=== PATIENT | male | born 1965 | race Caucasian/White ===

== ENCOUNTER 2017-01-07 00:40 | Inpatient (IN) | payer OTHER ==
[~2017-01-07] VITALS: Ht 175.3 cm; Wt 66.2 kg
[~2017-01-07 00:40] MED LIST: ASPI325T49 PO; CLOP75TA PO; INSULIN REGULAR; LANTUS SUBQ
[2017-01-07 00:45] VITALS: BP 121/93
[2017-01-07 02:28] LABS: HEMATOCRIT 49.9 % (36-52); HEMOGLOBIN 16.1 g/dL (12.0-18.0); MEAN CORPUSCULAR HEMOGLOBIN 27 pg (27-31); MEAN CORPUSCULAR HGB CONC 32 g/dL (33-37); MEAN CORPUSCULAR VOLUME 85 fL (80-94); PLATELET COUNT (AUTO) 154 K/uL (140-450); RED CELL DISTRIBUTION WIDTH 12.6 % (11.6-13.7); WHITE BLOOD COUNT (AUTO) 9.3 K/uL (4.8-10.8)
[2017-01-07 02:47] LABS: ALBUMIN 3.5 g/dL (3.4-5.0); ANION GAP 9.6 (8-16); CALCIUM 8.8 mg/dL (8.5-10.1); CARBON DIOXIDE 32.5 mmol/L (21-32); CREATININE 1.2 mg/dL (0.7-1.3); POTASSIUM 4.1 mmol/L (3.5-5.1); TOTAL BILIRUBIN 0.4 mg/dL (0.0-1.0); TOTAL PROTEIN, SERUM 6.8 g/dL (6.4-8.2)
[2017-01-07 02:49] LABS: PARTIAL THROMBOPLASTIN TIME 27.3 secs (22-35.6); PROTHROMBIN TIME 9.8 secs (10.8-13.4)
[2017-01-07 02:50] LABS: BASOPHILS % (MANUAL) 1 % (0-2); EOSINOPHILS % (MANUAL) 6 % (0-4); LYMPHOCYTES % (MANUAL) 36 % (20-46); MONOCYTES % (MANUAL) 6 % (5-12); NEUTROPHILS % (MANUAL) 51 (43-65)
[2017-01-07] MEDS ORDERED: INSULIN HUMAN REGULAR 100 UNITS/ML 10 ML VIAL IVP ONE (02:55)
[2017-01-07] MEDS ORDERED: NACL 0.9% 1,000 ML IV ONE (02:55)
[2017-01-07] MEDS ORDERED: NACL 0.9% 1,000 ML IV SCH (03:19)
[2017-01-07] MEDS ORDERED: HYDROcodone/APAP 7.5/325 MG 1 TAB PO PRN (03:20)
[2017-01-07] MEDS ORDERED: ACETAMINOPHEN 325 MG TAB PO PRN (03:20)
[2017-01-07] MEDS ORDERED: DOCUSATE SODIUM 100 MG GELCAP PO PRN (03:20)
[2017-01-07] MEDS ORDERED: MORPHINE SULFATE 2 MG/ML SYR IVP PRN (03:20)
[2017-01-07] MEDS ORDERED: ONDANSETRON 4 MG/2 ML VIAL IM/IVP PRN (03:20)
[2017-01-07] MEDS ORDERED: DEXTROSE 50% 50 ML SYR IVP PRN (03:40)
[2017-01-07 03:52] LABS: CHOL/HDL RATIO 4.8 (1-4.5); FREE T4 (FREE THYROXINE) 1.23 ng/dL (0.76-1.46); MAGNESIUM 1.8 mg/dL (1.8-2.4); PHOSPHORUS 3.2 mg/dL (2.5-4.9); THYROID STIMULATING HORMONE 2.52 uIU/mL (0.34-3.74)
[2017-01-07 04:03] VITALS: BP 120/84
[2017-01-07] MEDS ORDERED: METO25TE2 PO (04:38)
[2017-01-07] MEDS ORDERED: ATOR20TA PO (04:38)
[2017-01-07] MEDS ORDERED: ECOTRIN 81 MG TABEC PO SCH (05:00)
[2017-01-07] MEDS: NACL 0.9% 1,000 ML IV SCH ×2 (05:00→11:59)
[2017-01-07] MEDS: LISINOPRIL 10 MG TAB PO SCH ×2 (05:55→09:00)
[2017-01-07] MEDS: BLOOD GLUCOSE MONITORING 1 DEV DEV FS SCH ×4 (06:00→20:50)
[2017-01-07] MEDS: INSULIN LISPRO SLIDING SCALE 100 UNITS/ML VIAL SUBQ PRN ×4 (06:02→20:52)
[2017-01-07 08:17] VITALS: BP 129/88
[2017-01-07] MEDS ORDERED: PANTOPRAZOLE 40 MG TABEC PO SCH (09:00)
[2017-01-07] MEDS: ECOTRIN 81 MG TABEC PO SCH (09:00)
[2017-01-07] MEDS: ATORVASTATIN 20 MG TAB PO SCH (09:12)
[2017-01-07] MEDS: CLOPIDOGREL 75 MG TAB PO SCH (09:13)
[2017-01-07] MEDS: METOPROLOL SUCCINATE 50 MG TABER PO SCH (09:13)
[2017-01-07 12:00] VITALS: BP 120/89
[2017-01-07 13:39] LABS: BILIRUBIN,URINE NEGATIVE (NEGATIVE); BLOOD, URINE NEGATIVE (NEGATIVE); COLOR,URINE YELLOW (YELLOW); LEUKOCYTE ESTERASE ,URINE NEGATIVE (NEGATIVE); NITRITE, URINE NEGATIVE (NEGATIVE); PH,URINE 6.5 (5.0-9.0); PROTEIN,URINE NEGATIVE (NEGATIVE); UGLUCOSE 3+ (NEGATIVE); UROBILINOGEN,URINE 0.2 EU/dL (0.2 - 1)
[2017-01-07 13:46] LABS: AMPHETAMINE, URINE POS. ng/ml (NEG <=1000); BARBITURATE, URINE NEG. ng/ml (NEG <=200); BENZODIAZEPINE, URINE NEG. ng/mL (NEG <=200); CANNABINOID, URINE NEG. ng/mL (NEG <=50); COCAINE, URINE NEG. ng/mL (NEG <=300); OPIATE, URINE NEG. ng/mL (NEG <=2000); PHENCYCLIDINE SCREEN,URINE NEG. ng/mL (NEG <=25)
[2017-01-07 13:53] LABS: APPEARANCE,URINE CLEAR (CLEAR)
[2017-01-07 14:03] LABS: RBC,URINE NONE SEEN /HPF (0-5)
[2017-01-07 14:04] LABS: BACTERIA,URINE None Seen /HPF (None Seen); MUCUS,URINE None Seen /LPF (None Seen); SQUAMOUS EPITHELIAL CELL,UR None Seen /LPF (0-3 (FEW)); WBC,URINE 0-5 (RARE) /HPF (0-5)
[2017-01-07 16:00] VITALS: BP 112/73
[2017-01-08] VITALS: BP 117/79
[2017-01-08] MEDS: NACL 0.9% 1,000 ML IV SCH (05:36)
[2017-01-08 06:24] LABS: BASOPHILS # (AUTO) 0.3 K/uL (0.00-0.22); BASOPHILS % (AUTO) 2.1 % (0.0-2.0); EOSINOPHILS # (AUTO) 0.4 K/uL (0-0.4); EOSINOPHILS % (AUTO) 2.9 % (0.0-4.0); HEMATOCRIT 52.8 % (36-52); HEMOGLOBIN 17.1 g/dL (12.0-18.0); LYMPHOCYTES # (AUTO) 2.9 K/uL (2.0-11.5); LYMPHOCYTES % (AUTO) 21.9 % (20.5-51.1); MEAN CORPUSCULAR HEMOGLOBIN 28 pg (27-31); MEAN CORPUSCULAR HGB CONC 32 g/dL (33-37); MEAN CORPUSCULAR VOLUME 85 fL (80-94); MONOCYTES % (AUTO) 7.3 % (1.7-9.3); NEUTROPHILS # (AUTO) 8.6 K/uL (1.8-7.7); NEUTROPHILS % (AUTO) 65.8 % (42.2-75.2); PLATELET COUNT (AUTO) 163 K/uL (140-450); RED BLOOD CELL COUNT(AUTO) 6.23 MIL/uL (4.20-6.10); RED CELL DISTRIBUTION WIDTH 12.4 % (11.6-13.7); WHITE BLOOD COUNT (AUTO) 13.2 K/uL (4.8-10.8)
[2017-01-08] MEDS: BLOOD GLUCOSE MONITORING 1 DEV DEV FS SCH ×2 (06:31→12:13)
[2017-01-08] MEDS: INSULIN LISPRO SLIDING SCALE 100 UNITS/ML VIAL SUBQ PRN ×2 (06:32→12:14)
[2017-01-08 06:45] LABS: ANION GAP 8.5 (8-16); CALCIUM 8.7 mg/dL (8.5-10.1); CARBON DIOXIDE 30.9 mmol/L (21-32); CREATININE 0.9 mg/dL (0.7-1.3); POTASSIUM 4.4 mmol/L (3.5-5.1)
[2017-01-08] MEDS ORDERED: PANTOPRAZOLE 40 MG TABEC PO SCH (06:58)
[2017-01-08 07:03] LABS: MAGNESIUM 1.6 mg/dL (1.8-2.4); PHOSPHORUS 2.4 mg/dL (2.5-4.9)
[2017-01-08 08:00] VITALS: BP 120/81
[2017-01-08] MEDS: LISINOPRIL 10 MG TAB PO SCH (08:54)
[2017-01-08] MEDS: METOPROLOL SUCCINATE 50 MG TABER PO SCH (08:54)
[2017-01-08] MEDS: CLOPIDOGREL 75 MG TAB PO SCH (08:54)
[2017-01-08] MEDS: ECOTRIN 81 MG TABEC PO SCH (08:54)
[2017-01-08] MEDS: ATORVASTATIN 20 MG TAB PO SCH (08:55)
[2017-01-08] MEDS ORDERED: INSULIN DETEMIR 100 UNITS/ML 10 ML VIAL SUBQ SCH (09:00)
[2017-01-08] MEDS ORDERED: DEXTROSE 50% 50 ML SYR IVP PRN (09:55)
[2017-01-08] MEDS ORDERED: METO50TE2 PO (14:49)
[2017-01-08] MEDS ORDERED: CLOP75TA5 PO (14:49)
[2017-01-08] MEDS ORDERED: ATOR20TA40 PO (14:49)
[2017-01-08] MEDS ORDERED: LISI10TA11 PO (14:49)
[2017-01-08] MEDS ORDERED: LEVEMIR SUBQ (14:49)
[2017-01-08] MEDS ORDERED: PANT40EC28 PO (14:49)
[2017-01-08] MEDS ORDERED: ASPI81TA28 PO (14:49)
[2017-01-08] MEDS ORDERED: BLOO1STR10 FS (14:50)
[2017-01-09 09:24] LABS: T4 (THYROXINE) 11.5 ug/dL (4.5-12.0)
[2017-01-09 17:13] LABS: HEMOGLOBIN A1C 12.1 % (4.8-5.6)
== END 2017-01-08 16:00 | disposition home or self-care (01) | DRG 638 ==
LOC: MED 00:40 → MTU 03:25
PROVIDERS: ADMIT Student in an Organized Health Care Education/Training Program; ATTEND Student in an Organized Health Care Education/Training Program
DX: E11.65 Type 2 diabetes mellitus with hyperglycemia (principal); D68.59 Other primary thrombophilia; K21.9 Gastro-esophageal reflux disease without esophagitis; I10 Essential (primary) hypertension; F17.210 Nicotine dependence, cigarettes, uncomplicated; E78.5 Hyperlipidemia, unspecified; E78.1 Pure hyperglyceridemia; I25.10 Atherosclerotic heart disease of native coronary artery without angina pectoris; B19.20 Unspecified viral hepatitis C without hepatic coma; Z86.19 Personal history of other infectious and parasitic diseases; Z79.4 Long term (current) use of insulin; Z95.818 Presence of other cardiac implants and grafts; Z79.82 Long term (current) use of aspirin; Z83.3 Family history of diabetes mellitus; Z82.49 Family history of ischemic heart disease and other diseases of the circulatory system; Z28.21 Immunization not carried out because of patient refusal
CPT/HCPCS: 36415; 71010; 80048; 80053; 80305; 81001; 82150; 82948; 83036; 83690; 83735; 83880; 84100; 84436; 84439; 84443; 84479; 84484; 85025; 85610; 85730; 87081; 93005; 93925; 93970; 96374; 99285; J1815; J7030; Q0092

== ENCOUNTER 2017-03-20 10:41 | Inpatient (IN) | payer OTHER ==
[~2017-03-20] VITALS: Ht 175.3 cm; Wt 67.6 kg
[~2017-03-20 10:41] MED LIST changes: +ASPI-1173 PO; -ASPI325T49 PO; +ATOR20TA40 PO; +BLOO1STR10 FS; -CLOP75TA PO; +CLOP75TA26 PO; +LEVEMIR SUBQ; +LISI10TA11 PO; +METO50TE2 PO; +PANT40EC28 PO
[2017-03-20 10:44] VITALS: BP 119/82
--- NOTE | 2017-03-20 11:46 | NUR ---
PT PRESENTS TO ER W/C/O CHEST PAIN X1 HOUR. HX CAD, DM. DENIES N/V/D; SKIN IS PINK/WARM/DRY; AAOX4 WITH EVEN AND STEADY GAIT; LUNGS CLEAR BL; HR EVEN AND REGULAR; PT DENIES ANY FEVER, SOB, OR COUGH AT THIS TIME; PATIENT STATES PAIN OF 8/10 AT THIS TIME; VSS; PATIENT POSITIONED FOR COMFORT; HOB ELEVATED; BEDRAILS UP X2; BED DOWN. ER MD MADE AWARE OF PT STATUS.
--- NOTE | 2017-03-20 11:46 | NUR ---
PATIENT TO BED 11 AT THIS TIME.
--- NOTE | 2017-03-20 11:47 | NUR ---
Patient being evaluated by physician at bedside.
[2017-03-20] MEDS ORDERED: NACL 0.9% 1,000 ML IV ONE (11:55)
[2017-03-20] MEDS ORDERED: INSULIN HUMAN REGULAR 100 UNITS/ML 10 ML VIAL IVP ONE (11:55)
--- NOTE | 2017-03-20 12:02 | NUR ---
pt refused abg and dr. méndez notified
[2017-03-20 12:10] LABS: BASOPHILS # (AUTO) 0.4 K/uL (0.00-0.22); BASOPHILS % (AUTO) 3.7 % (0.0-2.0); EOSINOPHILS # (AUTO) 0.2 K/uL (0-0.4); EOSINOPHILS % (AUTO) 1.7 % (0.0-4.0); HEMATOCRIT 52.9 % (36-52); HEMOGLOBIN 17.1 g/dL (12.0-18.0); LYMPHOCYTES # (AUTO) 1.8 K/uL (2.0-11.5); LYMPHOCYTES % (AUTO) 17.9 % (20.5-51.1); MEAN CORPUSCULAR HEMOGLOBIN 28 pg (27-31); MEAN CORPUSCULAR HGB CONC 32 g/dL (33-37); MEAN CORPUSCULAR VOLUME 87 fL (80-94); MONOCYTES # (AUTO) 0.8 K/uL (0.8-1.0); MONOCYTES % (AUTO) 7.9 % (1.7-9.3); NEUTROPHILS # (AUTO) 6.7 K/uL (1.8-7.7); NEUTROPHILS % (AUTO) 68.8 % (42.2-75.2); PLATELET COUNT (AUTO) 215 K/uL (140-450); RED BLOOD CELL COUNT(AUTO) 6.08 MIL/uL (4.20-6.10); RED CELL DISTRIBUTION WIDTH 12.8 % (11.6-13.7); WHITE BLOOD COUNT (AUTO) 9.9 K/uL (4.8-10.8)
[2017-03-20 12:29] LABS: PROTHROMBIN TIME 10.5 secs (10.8-13.4)
[2017-03-20 12:32] LABS: ALBUMIN 3.6 g/dL (3.4-5.0); ANION GAP 9.4 (8-16); CARBON DIOXIDE 29.9 mmol/L (21-32); CREATININE 1.2 mg/dL (0.7-1.3); POTASSIUM 5.3 mmol/L (3.5-5.1); TOTAL BILIRUBIN 0.7 mg/dL (0.0-1.0)
[2017-03-20] MEDS ORDERED: ACETAMINOPHEN 325 MG TAB PO PRN (13:10)
[2017-03-20] MEDS ORDERED: HYDROcodone/APAP 7.5/325 MG 1 TAB PO PRN (13:10)
[2017-03-20] MEDS ORDERED: ONDANSETRON 4 MG/2 ML VIAL IVP PRN (13:10)
[2017-03-20] MEDS ORDERED: DEXTROSE 50% 50 ML SYR IVP PRN (13:20)
--- NOTE | 2017-03-20 13:33 | NUR ---
RN UNAVAILABLE FOR REPORT AT THIS TIME
--- NOTE | 2017-03-20 13:40 | NUR ---
Patient will be admitted to care of DR RODRIGUEZ. Admited to TELE. Will go to room 119B. Belongings list completed. Report to JOHN PAUL.
[2017-03-20 13:44] LABS: CHOL/HDL RATIO 4.5 (1-4.5); FREE T4 (FREE THYROXINE) 1.14 ng/dL (0.76-1.46); MAGNESIUM 1.6 mg/dL (1.8-2.4); PHOSPHORUS 2.8 mg/dL (2.5-4.9); THYROID STIMULATING HORMONE 1.04 uIU/mL (0.34-3.74)
[2017-03-20 13:44] LABS: APPEARANCE,URINE CLEAR (CLEAR); BILIRUBIN,URINE NEGATIVE (NEGATIVE); BLOOD, URINE NEGATIVE (NEGATIVE); COLOR,URINE YELLOW (YELLOW); LEUKOCYTE ESTERASE ,URINE NEGATIVE (NEGATIVE); NITRITE, URINE NEGATIVE (NEGATIVE); UGLUCOSE 3+ (NEGATIVE)
--- NOTE | 2017-03-20 13:52 | NUR ---
1352: END TIME FOR 1L N/S 0.9% AT 999
[2017-03-20 14:00] VITALS: BP 120/90
--- NOTE | 2017-03-20 14:00 | NUR ---
RECEIVED PT FROM ER. AWAKE. ASSISTED BY ER NURSE. ALERT ORIENTEDX4. NO SOB NOTED. DENIES ANY PAIN OR DISCOMFORT AT THIS TIME. SKIN INTACT. POSITIVE BOWEL SOUNDS NOTED ON FOUR QUADRANTS. PT AMBULATORY. SAFETY PRECAUTION IN PLACE. CALL LIGHT WITHIN REACH. HOOKED TO TELEMONITOR.
[2017-03-20] MEDS: NACL 0.9% 1,000 ML IV SCH ×2 (14:08→22:40)
--- NOTE | 2017-03-20 15:12 | NUR ---
DR. FIGUEROA MADE AWARE OF LATEST BLOOD SUGAR READING OF 265MG/DL. AND PT WANTED SOMETHING TO EAT. TO PUT ORDER FOR DIET.
[2017-03-20] MEDS ORDERED: METF500T PO (15:14)
[2017-03-20] MEDS ORDERED: NITROGLYCERIN 0.4 MG TAB SL PRN ×2 (15:30→16:25)
[2017-03-20 16:00] VITALS: BP 111/73
[2017-03-20] MEDS ORDERED: MAG SULF 2000 MG/WATER PREMIX 50 ML IV SCH (16:00)
[2017-03-20] MEDS: metFORMIN 500 MG TAB PO SCH (16:47)
[2017-03-20] MEDS: INSULIN LISPRO SLIDING SCALE 100 UNITS/ML VIAL SUBQ PRN ×2 (16:50→20:34)
[2017-03-20] MEDS: BLOOD GLUCOSE MONITORING 1 DEV DEV FS SCH ×2 (16:50→20:30)
[2017-03-20 19:18] LABS: BARBITURATE, URINE NEG. ng/ml (NEG <=200); BENZODIAZEPINE, URINE NEG. ng/mL (NEG <=200); CANNABINOID, URINE NEG. ng/mL (NEG <=50); COCAINE, URINE NEG. ng/mL (NEG <=300); OPIATE, URINE NEG. ng/mL (NEG <=2000); PHENCYCLIDINE SCREEN,URINE NEG. ng/mL (NEG <=25)
--- NOTE | 2017-03-20 19:22 | NUR ---
PT KEPT CLEAN, DRY AND COMFORTABLE. NEEDS ATTENDED. ENDORSED TO NEXT SHIFT, PT ON STABLE CONDITION, FOR CONTINUITY OF CARE.
--- NOTE | 2017-03-20 19:30 | NUR ---
RECEIVED REPORT FROM DAY RN, PATIENT RESTING IN BED, NO S/S OF ACUTE DISTRESS NOTED, RESPIRATION EVEN AND UNLABORED, IV PATENT AND INTACT, INFUSING NS AT 125ML/HR, PLAN OF CARE DISCUSSED, VERBALIZED UNDERSTANDING, CALL LIGHT WITHIN REACH, SAFETY MEASURE ENSURED ,WILL CONTINUE TO MONITOR.
[2017-03-20 20:06] VITALS: BP 117/85
[2017-03-20] MEDS: DOCUSATE SODIUM 100 MG GELCAP PO SCH (20:28)
--- NOTE | 2017-03-20 22:37 | NUR ---
ASSISTED PATIENT TO THE BATHROOM, VOIDED X1, NO S/S OF ACUTE DISTRESS NOTED, RESPIRATION EVEN AND UNLABORED, WILL CONTINUE TO MONITOR.
[2017-03-21 00:15] VITALS: BP 123/90
--- NOTE | 2017-03-21 01:40 | NUR ---
PATIENT IS SLEEPING AT THIS TIME, NO S/S OF ACUTE DISTRESS NOTED, RESPIRATION EVEN AND UNLABORED, CALL LIGHT WITHIN REACH, SAFETY MEASURE ENSURED ,WILL CONTINUE TO MONITOR.
--- NOTE | 2017-03-21 03:53 | NUR ---
NO CHANGE IN CONDITION, PATIENT IS SLEEPING AT THIS TIME. NO S/S OF ACUTE DISTRESS NOTED, RESPIRATION EVEN AND UNLABORED, CALL LIGHT WITHIN REACH, SAFETY MEASURE ENSURED, WILL CONTINUE TO MONITOR.
[2017-03-21 04:00] VITALS: BP 120/86
--- NOTE | 2017-03-21 06:18 | NUR ---
PATIENT IS SLEEPING AT THIS TIME. NO S/S OF ACUTE DISTRESS NOTED, RESPIRATION EVEN AND UNLABORED, CALL LIGHT WITHIN REACH, SAFETY MEASURE ENSURED, WILL CONTINUE TO MONITOR.
[2017-03-21] MEDS: NACL 0.9% 1,000 ML IV SCH ×3 (06:23→22:35)
[2017-03-21] MEDS: BLOOD GLUCOSE MONITORING 1 DEV DEV FS SCH ×4 (06:41→20:08)
[2017-03-21] MEDS: INSULIN LISPRO SLIDING SCALE 100 UNITS/ML VIAL SUBQ PRN ×4 (06:42→20:11)
[2017-03-21] MEDS: PANTOPRAZOLE 40 MG TABEC PO SCH (06:44)
[2017-03-21 07:02] LABS: BASOPHILS # (AUTO) 0.4 K/uL (0.00-0.22); BASOPHILS % (AUTO) 3.4 % (0.0-2.0); EOSINOPHILS # (AUTO) 0.3 K/uL (0-0.4); EOSINOPHILS % (AUTO) 2.8 % (0.0-4.0); HEMOGLOBIN 16.8 g/dL (12.0-18.0); LYMPHOCYTES # (AUTO) 2.5 K/uL (2.0-11.5); LYMPHOCYTES % (AUTO) 21.8 % (20.5-51.1); MEAN CORPUSCULAR HEMOGLOBIN 29 pg (27-31); MEAN CORPUSCULAR HGB CONC 34 g/dL (33-37); MEAN CORPUSCULAR VOLUME 86 fL (80-94); MONOCYTES # (AUTO) 0.8 K/uL (0.8-1.0); MONOCYTES % (AUTO) 6.9 % (1.7-9.3); NEUTROPHILS # (AUTO) 7.6 K/uL (1.8-7.7); NEUTROPHILS % (AUTO) 65.1 % (42.2-75.2); PLATELET COUNT (AUTO) 210 K/uL (140-450); RED BLOOD CELL COUNT(AUTO) 5.84 MIL/uL (4.20-6.10); RED CELL DISTRIBUTION WIDTH 12.6 % (11.6-13.7); WHITE BLOOD COUNT (AUTO) 11.6 K/uL (4.8-10.8)
--- NOTE | 2017-03-21 07:20 | NUR ---
ENDORSED PLAN OF CARE TO DAY RN. PATIENT IS IN STABLE CONDITION. NO S/S OF DISTRESS, RESPIRATION EVEN AND UNLABORED.
--- NOTE | 2017-03-21 07:20 | NUR ---
RECEIVED REPORT FROM LINE SERVICER RN. PATIENT IS AAOX4, LUNG SOUNDS ARE CLEAR, BOWEL SOUNDS ARE ACTIVE. HAS NS INFUSING TO LEFT AC 20G AT 125ML/HR. SITE IS PATENT, CLEAN, DRY AND INTACT. NO SIGNS AND SYMPTOMS OF ACUTE DISTRESS NOTED AT THIS TIME. BED IN LOWEST POSITION, SIDERAILS UP X2, CALL LIGHT PLACED WITHIN REACH. INSTRUCTED PATIENT TO USE CALL LIGHT IF NEEDS ANYTHING. VERBALIZED UNDERSTANDING. WILL CONTINUE TO MONITOR.
[2017-03-21 07:35] LABS: ANION GAP 10.8 (8-16); CARBON DIOXIDE 30.4 mmol/L (21-32); CREATININE 0.9 mg/dL (0.7-1.3); POTASSIUM 4.2 mmol/L (3.5-5.1)
[2017-03-21 07:43] LABS: MAGNESIUM 1.5 mg/dL (1.8-2.4); PHOSPHORUS 2.8 mg/dL (2.5-4.9)
[2017-03-21 08:00] VITALS: BP 119/85
--- NOTE | 2017-03-21 08:00 | NUR ---
PATIENT DENIES ANY CHEST PAIN, COMPLAINING OF NECK PAIN. WILL MEDICATE ORDERED.
[2017-03-21] MEDS ORDERED: MAG SULF 2000 MG/WATER PREMIX 50 ML IV SCH (08:30)
[2017-03-21] MEDS: metFORMIN 500 MG TAB PO SCH ×2 (08:35→16:57)
[2017-03-21] MEDS: ECOTRIN 81 MG TABEC PO SCH (08:35)
[2017-03-21] MEDS: ATORVASTATIN 20 MG TAB PO SCH (08:35)
[2017-03-21] MEDS: DOCUSATE SODIUM 100 MG GELCAP PO SCH ×2 (08:35→20:07)
[2017-03-21] MEDS: METOPROLOL SUCCINATE 50 MG TABER PO SCH (08:36)
[2017-03-21] MEDS: CLOPIDOGREL 75 MG TAB PO SCH (08:36)
[2017-03-21] MEDS: LISINOPRIL 10 MG TAB PO SCH (08:36)
[2017-03-21] MEDS: MORPHINE SULFATE 2 MG/ML SYR IVP PRN ×3 (08:37→20:17)
[2017-03-21] MEDS ORDERED: INSULIN DETEMIR 100 UNITS/ML 10 ML VIAL SUBQ SCH ×2 (09:00→21:00)
[2017-03-21 12:00] VITALS: BP 129/73
--- NOTE | 2017-03-21 14:30 | NUR ---
ENDORSED PATIENT TO DERECK RN FOR CONTINUITY OF CARE. PATIENT IN STABLE CONDITION.
--- NOTE | 2017-03-21 14:30 | NUR ---
RECEIVED REPORT FROM RN FOR CONTINUITY OF CARE, PT IS AAOX4, ON ROOM AIR, IV TO LEFT AC 20G INFUSING WELL, SKIN INTACT. NO S/S OF DISTRESS NOTED, INITIAL ASSESSMENT COMPLETED, REVIEWED PLAN OF CARE WITH PT, PT VERBALIZED UNDERSTANDING. ALL SAFETY PRECAUTIONS IN PLACE, CALL LIGHT WITHIN REACH. WILL CONTINUE TO MONITOR.
--- NOTE | 2017-03-21 14:51 | NUR ---
CM NOTE PER HOB GRINDER KHRIS, PATIENT'S PRIMARY INSURANCE IS [employer] AND NOT MEDICARE A & B INITIALLY STATED ON PATIENT'S FACESHEET. INITIAL REVIEW FAXED TO [facility] [phone]. SPOKE WITH DARRIAN TO INFORM HER OF THIS ADMISSION PH# [phone] AND GAVE HER THE NUMBER TO THE NURSING FLOOR WHERE PATIENT IS.
[2017-03-21 16:00] VITALS: BP 117/78
--- NOTE | 2017-03-21 17:00 | NUR ---
DUE MEDICATIONS GIVEN, PT TOLERATED WELL, PT CURRENTLY RESTING IN BED, NO S/S OF DISTRESS NOTED, PT DENIES ANY PAIN AT THIS TIME, CALL LIGHT WITHIN REACH. WILL CONTINUE TO MONITOR.
--- NOTE | 2017-03-21 19:12 | NUR ---
ENDORSED PLAN OF CARE TO NIGHT NURSE, PT IN STABLE CONDITION. PT CURRENTLY RESTING IN BED.
--- NOTE | 2017-03-21 19:15 | NUR ---
RECEIVED REPORT FROM AM NURSE. PT RESTING COMFORTABLY IN BED, AOX4, AMBULATORY, ABLE TO VERBALIZE NEEDS. PT DENIES CHEST PAIN. PT C/O SLIGHT SOB. NO S/S OF RESPIRATORY DISTRESS OR ACUTE DISTRESS, SPO2 96% AT ROOM AIR, RR 16 UNLABORED. PT ENCOURAGED TO AMBULATE AND PERFORM DEEP BREATHING EXERCISES, PT INSTRUCTED TO NOTIFY IF HE FEELS THAT IT IS GETTING WORSE. LINING FELLER IN PLACE, SCDs ENSURED. IV ACCESS ASYMPTOMATIC, PATENT AND INTACT. IVF INFUSING WELL. ALL NEEDS MET. SAFETY MEASURES ENSURED. CALL LIGHT WITHIN REACH. WILL CONTINUE TO MONITOR.
[2017-03-21 20:00] VITALS: BP 114/74
--- NOTE | 2017-03-21 20:17 | NUR ---
PT C/O BACK OF NECK PAIN. SEE PAIN ASSESSMENT. ADMINISTERED MORPHINE IVP PRN ORDERED WITH EDUCATION. ADMINISTERED DUE MEDS WITH EDUCATION. INSULIN COVERAGE ADMINISTERED WITH EVENING SNACK. ALL NEEDS MET. IVF INFUSING WELL. SAFETY MEASURES ENSURED. CALL LIGHT WITHIN REACH. WILL CONTINUE TO MONITOR.
[2017-03-21] MEDS ORDERED: INFLUENZA VIRUS VACCINE QUAD 0.5 ML SYR IMVAC PRN (22:25)
--- NOTE | 2017-03-21 22:37 | NUR ---
ASSISTED PT TO SHOWER, PT AMBULATORY WITH STEADY GAIT, NO S/S OF ACUTE DISTRESS. PT INSTRUCTED TO USE CALL LIGHT WHEN DONE WITH SHOWER.
[2017-03-22] VITALS: BP 100/62
--- NOTE | 2017-03-22 00:10 | NUR ---
PT SLEEPING COMFORTABLY, NO S/S OF ACUTE DISTRESS. ALL NEEDS MET. IVF INFUSING WELL. SAFETY MEASURES ENSURED. CALL LIGHT WITHIN REACH. WILL CONTINUE TO MONITOR.
--- NOTE | 2017-03-22 03:50 | NUR ---
PT SLEEPING COMFORTABLY, NO S/S OF ACUTE DISTRESS. ALL NEEDS MET. IVF INFUSING WELL. SAFETY MEASURES ENSURED. CALL LIGHT WITHIN REACH. WILL CONTINUE TO MONITOR.
[2017-03-22 04:00] VITALS: BP 97/66
[2017-03-22 06:15] LABS: HEMOGLOBIN 16.6 g/dL (12.0-18.0); MEAN CORPUSCULAR HEMOGLOBIN 29 pg (27-31); MEAN CORPUSCULAR HGB CONC 33 g/dL (33-37); MEAN CORPUSCULAR VOLUME 87 fL (80-94); PLATELET COUNT (AUTO) 215 K/uL (140-450); RED BLOOD CELL COUNT(AUTO) 5.79 MIL/uL (4.20-6.10); WHITE BLOOD COUNT (AUTO) 10.4 K/uL (4.8-10.8)
[2017-03-22] MEDS: NACL 0.9% 1,000 ML IV SCH ×3 (06:34→22:35)
[2017-03-22] MEDS: BLOOD GLUCOSE MONITORING 1 DEV DEV FS SCH ×4 (06:34→20:19)
[2017-03-22] MEDS: PANTOPRAZOLE 40 MG TABEC PO SCH (06:35)
[2017-03-22] MEDS: INSULIN LISPRO SLIDING SCALE 100 UNITS/ML VIAL SUBQ PRN ×3 (06:36→20:26)
--- NOTE | 2017-03-22 06:36 | NUR ---
ADMINISTERED DUE MED WITH EDUCATION. PT VERBALIZED UNDERSTANDING, TOLERATED MED WELL. INSULIN COVERAGE ADMINISTERED WITH EDUCATION. ALL NEEDS MET. IVF INFUSING WELL. SAFETY MEASURES ENSURED. CALL LIGHT WITHIN REACH. WILL CONTINUE TO MONITOR.
[2017-03-22 06:37] LABS: ANION GAP 11.7 (8-16); POTASSIUM 3.7 mmol/L (3.5-5.1)
[2017-03-22 06:41] LABS: MAGNESIUM 1.6 mg/dL (1.8-2.4); PHOSPHORUS 3.5 mg/dL (2.5-4.9)
[2017-03-22 06:58] LABS: LYMPHOCYTES % (MANUAL) 20 % (20-46); MONOCYTES % (MANUAL) 8 % (5-12)
[2017-03-22 06:59] LABS: EOSINOPHILS % (MANUAL) 5 % (0-4)
--- NOTE | 2017-03-22 07:22 | NUR ---
ENDORSED PLAN OF CARE TO AM NURSE. CONDITION STABLE.
--- NOTE | 2017-03-22 07:23 | NUR ---
RECEIVED PT FROM ROCAEL LOPEZ AT BEDSIDE. PT IS A&OX4. PT HAS IV ON L AC 20G RUNNING NS@125. PT HAS NO COMPLAINTS AT THIS TIME. PT STATED HE STILL FEELS WEAK. CALL LIGHT WITHIN REACH. WILL CONTINUE TO MONITOR.
--- NOTE | 2017-03-22 07:53 | NUR ---
PATIENT HAS BEEN SCREENED AND CATEGORIZED MODERATE NUTRITION RISK. PATIENT WILL BE SEEN WITHIN 3-5 DAYS OF ADMISSION. 03/23/17-03/25/[address]
[2017-03-22 08:00] VITALS: BP 110/80
[2017-03-22] MEDS ORDERED: metFORMIN 850 MG TAB PO SCH (08:00)
[2017-03-22] MEDS: METOPROLOL SUCCINATE 50 MG TABER PO SCH (08:22)
[2017-03-22] MEDS: CLOPIDOGREL 75 MG TAB PO SCH (08:23)
[2017-03-22] MEDS: metFORMIN 500 MG TAB PO SCH ×2 (08:24→17:08)
[2017-03-22] MEDS: ATORVASTATIN 20 MG TAB PO SCH (08:24)
[2017-03-22] MEDS: ECOTRIN 81 MG TABEC PO SCH (08:24)
[2017-03-22] MEDS: DOCUSATE SODIUM 100 MG GELCAP PO SCH ×2 (08:24→20:28)
[2017-03-22] MEDS: LISINOPRIL 10 MG TAB PO SCH (08:24)
--- NOTE | 2017-03-22 08:38 | NUR ---
CM NOTE CONCURRENT REVIEW FAXED TO [facility] [phone] TRACKING# [id number]. SPOKE WITH PAT OF [facility] PH# [phone] AND SHE SAID THEIR DR. HARDING IS REQUESTING FOR A DOCTOR TO DOCTOR REPORT. INFORMED DR. Anna FIGUEROA AND GAVE HER THE NUMBER OF DR. HARDING FOR DOCTOR TO DOCTOR REPORT.
[2017-03-22] MEDS: INSULIN DETEMIR 100 UNITS/ML 10 ML VIAL SUBQ SCH (08:39)
[2017-03-22] MEDS ORDERED: INSULIN DETEMIR 100 UNITS/ML 10 ML VIAL SUBQ SCH ×2 (09:00→21:00)
--- NOTE | 2017-03-22 09:53 | NUR ---
ADMINISTERED MAG VIA IV PIGGY BAG PER ORDER. PT IN STABLE CONDITION. CALL LIGHT WITHIN REACH. WILL CONTINUE TO MONITOR.
[2017-03-22] MEDS ORDERED: MAG SULF 2000 MG/WATER PREMIX 50 ML IV SCH (10:00)
[2017-03-22] MEDS ORDERED: MECLIZINE 25 MG TAB PO PRN (10:40)
[2017-03-22 11:38] VITALS: BP 116/80
--- NOTE | 2017-03-22 11:58 | NUR ---
PT IS RESTING COMFORTABLY IN BED. NO DISTRESS NOTED. CALL LIGHT WITHIN REACH. WILL CONTINUE TO MONITOR.
--- NOTE | 2017-03-22 13:30 | NUR ---
PT IS RESTING COMFORTABLY IN BED. STATED THAT MECLIZINE HELPED WITH DIZZINESS. CALL LIGHT WITHIN REACH. WILL CONTINUE TO MONITOR.
--- NOTE | 2017-03-22 15:36 | NUR ---
PT IS RESTING COMFORTABLY IN BED. NO DISTRESS NOTED. CALL LIGHT WITHIN REACH. WILL CONTINUE TO MONITOR.
[2017-03-22 16:00] VITALS: BP 130/76
--- NOTE | 2017-03-22 17:53 | NUR ---
PT IS EATING DINNER IN BED. TOLERATING WELL. CALL LIGHT WITHIN REACH. WILL CONTINUE TO MONITOR.
--- NOTE | 2017-03-22 19:26 | NUR ---
ENDORSED CARE OF PT TO REKHA LOPEZ AT BEDSIDE. PT IN STABLE CONDITION.
--- NOTE | 2017-03-22 19:27 | NUR ---
PATIENT REPORT RECEIVED AT BEDSIDE FROM MORNING NURSE. PATIENT IS AWAKE, ALERT, AND ORIENTED. NO SIGNS AND SYMPTOMS OF STRESS NOTED. PATIENT RESTING IN BED COMFORTABLY, WATCHING TV. IV SITE NOTED ON LEFT AC. IVF INFUSING WELL. BED IN LOWEST POSITION, SIDE RAILS UP AND CALL LIGHT WITHIN REACH. WILL CONTINUE TO MONITOR.
[2017-03-22 20:00] VITALS: BP 115/75
[2017-03-22] MEDS: MORPHINE SULFATE 2 MG/ML SYR IVP PRN (20:30)
--- NOTE | 2017-03-22 23:51 | NUR ---
CHECKED ON PATIENT. PATIENT IS ASLEEP, BUT CAN BE EASILY AWAKENED. NO SIGNS AND SYMPTOMS OF DISTRESS NOTED. BED IN LOWEST POSITION, SIDE RAILS UP AND CALL LIGHT WITHIN REACH. WILL CONTINUE TO MONITOR.
[2017-03-23] VITALS: BP 106/73
--- NOTE | 2017-03-23 01:00 | NUR ---
CHECKED ON PATIENT, PATIENT IS ASLEEP. NO SIGNS AND SYMPTOMS OF DISTRESS NOTED. BED IN LOWEST POSITION, SIDE RAILS UP AND CALL LIGHT WITHIN REACH. WILL CONTINUE TO MONITOR.
[2017-03-23 04:00] VITALS: BP 114/77
--- NOTE | 2017-03-23 04:18 | NUR ---
CHECKED ON PATIENT. PATIENT IS ASLEEP. NO SIGNS AND SYMPTOMS OF DISTRESS NOTED. BED IN LOWEST POSITION, SIDE RAILS UP AND CALL LIGHT WITHIN REACH.
[2017-03-23] MEDS: NACL 0.9% 1,000 ML IV SCH (06:00)
[2017-03-23 06:30] LABS: ANION GAP 10.6 (8-16); CARBON DIOXIDE 28.1 mmol/L (21-32); CREATININE 0.9 mg/dL (0.7-1.3); POTASSIUM 3.7 mmol/L (3.5-5.1)
[2017-03-23] MEDS: PANTOPRAZOLE 40 MG TABEC PO SCH (06:30)
[2017-03-23] MEDS: BLOOD GLUCOSE MONITORING 1 DEV DEV FS SCH (06:32)
[2017-03-23 06:34] LABS: MAGNESIUM 1.5 mg/dL (1.8-2.4); PHOSPHORUS 3.2 mg/dL (2.5-4.9)
--- NOTE | 2017-03-23 07:08 | NUR ---
PATIENT REPORT GIVEN TO MORNING NURSE AT BEDSIDE. PATIENT IS IN STABLE CONDITION
--- NOTE | 2017-03-23 07:09 | NUR ---
RECEIVED BEDSIDE REPORT FROM NIGHT NURSE, PT RESTING, STABLE, NO DISTRESS NOTED, ALERT AND ORIENTED, IV TO THE L AC 20G RUNNING NS@ 30ML/HR INFUSING WELL, SKIN INTACT, CALL LIGHT WITHIN REACH, WILL CONTINUE TO MONITOR.
[2017-03-23 08:00] VITALS: BP 124/86
[2017-03-23] MEDS ORDERED: MECL-272 PO (08:19)
[2017-03-23] MEDS ORDERED: GLU500 PO (08:19)
[2017-03-23] MEDS ORDERED: VARE1TAB27 PO (08:19)
[2017-03-23] MEDS ORDERED: LEVEMIR SUBQ (08:19)
[2017-03-23] MEDS ORDERED: [UNRECOGNIZED DRUG - CODE] MC (08:19)
[2017-03-23] MEDS ORDERED: LANC-486 MC (08:19)
[2017-03-23] MEDS ORDERED: BLOO1STR10 FS (08:19)
--- NOTE | 2017-03-23 08:29 | NUR ---
CM NOTE CONCURRENT REVIEW FAXED TO [facility] [phone] TRACKING# [id number], [facility] PH# [phone]
[2017-03-23] MEDS: METOPROLOL SUCCINATE 50 MG TABER PO SCH (09:00)
[2017-03-23] MEDS: metFORMIN 500 MG TAB PO SCH (09:00)
[2017-03-23] MEDS: DOCUSATE SODIUM 100 MG GELCAP PO SCH (09:00)
[2017-03-23] MEDS: ATORVASTATIN 20 MG TAB PO SCH (09:01)
[2017-03-23] MEDS: CLOPIDOGREL 75 MG TAB PO SCH (09:01)
[2017-03-23] MEDS: LISINOPRIL 10 MG TAB PO SCH (09:01)
[2017-03-23] MEDS: ECOTRIN 81 MG TABEC PO SCH (09:02)
[2017-03-23] MEDS: INSULIN DETEMIR 100 UNITS/ML 10 ML VIAL SUBQ SCH (09:04)
--- NOTE | 2017-03-23 09:30 | NUR ---
PT RESTING, NO DISTRESS NOTED, CALL LIGHT WITHIN REACH, REPORTED HAVING NO PAIN. WILL CONTINUE TO MONITOR
[2017-03-23 09:42] VITALS: BP 124/86
[2017-03-23] MEDS ORDERED: MAGNESIUM OXIDE 400 MG TAB PO SCH (10:00)
--- NOTE | 2017-03-23 10:50 | NUR ---
PT SIGNED HOMELESS WAIVER FORM AND VERBALIZED UNDERSTANDING.
--- NOTE | 2017-03-23 11:00 | NUR ---
PT DISCHARGE INSTRUCTION GIVEN, MEDICATION INFORMATION GIVEN, FOLLOW UP INFORMATION GIVEN, PT STATED UNDERSTANDING, IV TAKEN OUT, CATHETER INTACT, ALL BELONGINGS WITH PT, WRIST BAND TAKEN OUT.
--- NOTE | 2017-03-23 11:10 | NUR ---
PT REFUSED WHEELCHAIR. WALKED PT OUT OF HOSPITAL. PT IN STABLE CONDITION AND TOOK ALL BELONGINGS.
== END 2017-03-23 11:10 | disposition home or self-care (01) | DRG 637 ==
LOC: MED 10:41 → MTU 13:14
PROVIDERS: ADMIT Family Medicine; ATTEND Family Medicine
DX: E11.00 Type 2 diabetes mellitus with hyperosmolarity without nonketotic hyperglycemic-hyperosmolar coma (NKHHC) (principal); N17.0 Acute kidney failure with tubular necrosis; D68.59 Other primary thrombophilia; E83.42 Hypomagnesemia; E87.5 Hyperkalemia; E87.8 Other disorders of electrolyte and fluid balance, not elsewhere classified; E87.1 Hypo-osmolality and hyponatremia; I42.9 Cardiomyopathy, unspecified; K21.9 Gastro-esophageal reflux disease without esophagitis; E11.65 Type 2 diabetes mellitus with hyperglycemia; B19.20 Unspecified viral hepatitis C without hepatic coma; I25.10 Atherosclerotic heart disease of native coronary artery without angina pectoris; E78.2 Mixed hyperlipidemia; F17.200 Nicotine dependence, unspecified, uncomplicated; I10 Essential (primary) hypertension; J45.909 Unspecified asthma, uncomplicated; Z95.5 Presence of coronary angioplasty implant and graft; Z79.02 Long term (current) use of antithrombotics/antiplatelets; Z79.82 Long term (current) use of aspirin; Z79.84 Long term (current) use of oral hypoglycemic drugs; Z83.3 Family history of diabetes mellitus; Z82.49 Family history of ischemic heart disease and other diseases of the circulatory system; Z71.6 Tobacco abuse counseling
CPT/HCPCS: 36415; 71010; 80048; 80053; 80305; 81003; 82948; 83036; 83735; 83880; 84100; 84439; 84443; 84484; 85025; 85610; 85730; 87081; 87086; 93005; 96374; 99285; J1815; J2270; J3475; J7030; J8597; Q0092

== ENCOUNTER 2017-04-30 11:10 | Emergency (ER) | payer OTHER ==
[~2017-04-30] VITALS: Ht 177.8 cm; Wt 60.4 kg
[~2017-04-30 11:10] MED LIST changes: -BLOO1STR10 FS; +BLOO1STR56 FS; +GLU500 PO; -INSULIN REGULAR; +LANC-486 MC; -LANTUS SUBQ; +MECL-272 PO; +VARE1TAB27 PO; +[UNRECOGNIZED DRUG - CODE] MC
[2017-04-30 11:29] VITALS: BP 128/88
--- NOTE | 2017-04-30 11:37 | NUR ---
PATIENT PRESENTS TO ED WITH DIZZINESS X TODAY WITH C/O HIGH BLOOD GLUCOSE. PT STATES . DENIES N/V/D; SKIN IS PINK/WARM/DRY; AAOX4 WITH EVEN AND STEADY GAIT; LUNGS CLEAR BL; HR EVEN AND REGULAR; PT DENIES ANY FEVER, CP, SOB, OR COUGH AT THIS TIME; PATIENT STATES PAIN OF 0/10 AT THIS TIME; VSS; PATIENT POSITIONED FOR COMFORT; HOB ELEVATED; BEDRAILS UP X2; BED DOWN. ER MD MADE AWARE OF PT STATUS.
--- NOTE | 2017-04-30 12:12 | NUR ---
DR. SPENCER EVALUATING PT AT BEDSIDE.
[2017-04-30 12:16] LABS: BASOPHILS # (AUTO) 0.5 K/uL (0.00-0.22); BASOPHILS % (AUTO) 4.8 % (0.0-2.0); EOSINOPHILS # (AUTO) 0.2 K/uL (0-0.4); EOSINOPHILS % (AUTO) 1.8 % (0.0-4.0); HEMATOCRIT 55.3 % (36-52); HEMOGLOBIN 18.2 g/dL (12.0-18.0); LYMPHOCYTES # (AUTO) 1.7 K/uL (2.0-11.5); LYMPHOCYTES % (AUTO) 16.1 % (20.5-51.1); MEAN CORPUSCULAR HEMOGLOBIN 29 pg (27-31); MEAN CORPUSCULAR HGB CONC 33 g/dL (33-37); MEAN CORPUSCULAR VOLUME 88 fL (80-94); MONOCYTES % (AUTO) 9.3 % (1.7-9.3); NEUTROPHILS # (AUTO) 7.1 K/uL (1.8-7.7); PLATELET COUNT (AUTO) 225 K/uL (140-450); RED BLOOD CELL COUNT(AUTO) 6.32 MIL/uL (4.20-6.10); RED CELL DISTRIBUTION WIDTH 12.6 % (11.6-13.7); WHITE BLOOD COUNT (AUTO) 10.5 K/uL (4.8-10.8)
[2017-04-30] MEDS: NACL 0.9% 1,000 ML IV ONE (12:17)
[2017-04-30 12:25] LABS: ANION GAP 7.4 (8-16); CARBON DIOXIDE 32.6 mmol/L (21-32)
[2017-04-30 12:31] LABS: ALBUMIN 3.7 g/dL (3.4-5.0); TOTAL BILIRUBIN 0.8 mg/dL (0.0-1.0)
--- NOTE | 2017-04-30 13:14 | NUR ---
Patient appears to be resting comfortably in bed. Vital Signs within normal limits. Respirations even and unlabored.
--- NOTE | 2017-04-30 14:02 | NUR ---
ER MD DR. SPENCER STATES DOES NOT NEED PATIENT URINE AT THIS TIME; POSITIONED FOR COMFORT; WILL CONTINUE TO MONITOR.
[2017-04-30 14:25] VITALS: BP 122/90
--- NOTE | 2017-04-30 14:25 | NUR ---
Patient discharged with v/s stable. Written and verbal after care instructions given and explained. Patient verbalized understanding. Ambulatory with steady gait. All questions addressed prior to discharge. Advised to follow up with PMD.
== END 2017-04-30 14:25 | disposition home or self-care (01) ==
LOC: MED 11:10
DX: E11.65 Type 2 diabetes mellitus with hyperglycemia (principal); J45.909 Unspecified asthma, uncomplicated; K21.9 Gastro-esophageal reflux disease without esophagitis; I10 Essential (primary) hypertension
CPT/HCPCS: 80053; 82948; 84484; 85025; 93005; 96360; 99285; J7030

== ENCOUNTER 2018-12-21 16:57 | Inpatient (IN) | payer OTHER ==
[~2018-12-21] VITALS: Ht 175.3 cm; Wt 68.0 kg
[2018-12-21 17:04] VITALS: BP 114/89
--- NOTE | 2018-12-21 17:17 | NUR ---
pt ambulated to er bed 03
[2018-12-21] MEDS ORDERED: NITROGLYCERIN 2% 1 GM PKT TP ONE (17:40)
[2018-12-21] MEDS ORDERED: NACL 0.9% 1,000 ML IV ONE (17:40)
[2018-12-21] MEDS ORDERED: ASPIRIN 325 MG TAB PO ONE (17:40)
[2018-12-21] MEDS ORDERED: INSULIN REGULAR, HUMAN 100 UNIT/ML VIAL IVP ONE (17:40)
--- NOTE | 2018-12-21 17:40 | NUR ---
BIB SELF. AAO X4 C/O HIGH BLOOD SUGAR X 2 DAYS. PT STATES SOB, HEADACHE 9/10, INTERMITTENT PRESSURE LIKE CHEST PAIN X 2 DAYS. PT STATES FEELING CONFUSED. BS CHECK: 430. PER PT , HAS STENT PALCED LAD X THREE YEARS AGO. FREQUENT URINATION DURING NIGHT SINCE LAST TWO DAYS, UNABLE TO SLEEP PROPERLY. C/O DIZINESS SINCE YESTERDAY. PT LYING COMFORTABLY IN HIS BED. ER MD TO SEE THE PT. WILL CONITNUE TO MONITOR PT. PMH: DM, CORONARY ARTERY DISEASE, HTN, HYPERLIPIDEMIA MED RX: METFORMIN, METROPOLOL, HUMULIN N, LIPITOR ALLERGIES: DENIES
[2018-12-21 17:56] LABS: BASOPHILS # (AUTO) 0.1 K/uL (0.00-0.22); BASOPHILS % (AUTO) 1.2 % (0.0-2.0); EOSINOPHILS # (AUTO) 0.2 K/uL (0-0.4); EOSINOPHILS % (AUTO) 2.4 % (0.0-4.0); HEMATOCRIT 48.8 % (36-52); HEMOGLOBIN 16.9 g/dL (12.0-18.0); LYMPHOCYTES # (AUTO) 2.7 K/uL (2.0-11.5); LYMPHOCYTES % (AUTO) 33.2 % (20.5-51.1); MEAN CORPUSCULAR HEMOGLOBIN 30 pg (27-31); MEAN CORPUSCULAR HGB CONC 35 g/dL (33-37); MEAN CORPUSCULAR VOLUME 86.7 fL (80-94); MONOCYTES # (AUTO) 0.7 K/uL (0.8-1.0); MONOCYTES % (AUTO) 8.1 % (1.7-9.3); NEUTROPHILS # (AUTO) 4.6 K/uL (1.8-7.7); NEUTROPHILS % (AUTO) 55.1 % (42.2-75.2); PLATELET COUNT (AUTO) 194 K/uL (140-450); RED BLOOD CELL COUNT(AUTO) 5.62 MIL/uL (4.20-6.10); RED CELL DISTRIBUTION WIDTH 13.4 % (11.6-13.7); WHITE BLOOD COUNT (AUTO) 8.3 K/uL (4.8-10.8)
--- NOTE | 2018-12-21 18:03 | NUR ---
ADMINISTERED NITRO BID AT 1755 AT RT UPPER CHEST ORDERED. DATED AND PUT INITIAL. GAVE MEDS ORDERED TO PT. X-RAY AT THE BEDSIDE. WILL CONTINUE TO MONITOR PT.
[2018-12-21 18:24] LABS: ALBUMIN 3.5 g/dL (3.4-5.0); ANION GAP 8.2 (8-16); CARBON DIOXIDE 29.9 mmol/L (21-32); CREATININE 1.1 mg/dL (0.7-1.3); POTASSIUM 4.1 mmol/L (3.5-5.1); TOTAL BILIRUBIN 0.6 mg/dL (0.0-1.0)
[2018-12-21 18:40] LABS: CHOL/HDL RATIO 4.1 (1-4.5)
--- NOTE | 2018-12-21 18:45 | NUR ---
PT UNABLE TO URINATE AT THIS TIME. GAVE CUP OF WATER. IV NS BOLUS INFUSING. WILL CHECK ON PT AGAIN.
[2018-12-21] MEDS ORDERED: KETOROLAC 30 MG/ML VIAL IVP ONE (18:50)
[2018-12-21] MEDS ORDERED: LORazepam 2 MG/ML VIAL IM/IVP PRN (19:00)
[2018-12-21] MEDS ORDERED: ONDANSETRON 4 MG/2 ML VIAL IM/IVP PRN (19:00)
[2018-12-21] MEDS ORDERED: DOCUSATE SODIUM 100 MG GELCAP PO PRN (19:00)
[2018-12-21] MEDS ORDERED: MORPHINE SULFATE 2 MG/ML SYR IVP PRN (19:00)
[2018-12-21] MEDS ORDERED: ACETAMINOPHEN 325 MG TAB PO PRN (19:00)
[2018-12-21] MEDS ORDERED: KETOROLAC 30 MG/ML VIAL ONE (19:04)
[2018-12-21 19:27] LABS: THYROID STIMULATING HORMONE 1.39 uIU/mL (0.34-3.74)
[2018-12-21] MEDS ORDERED: ATOR10TA PO (19:34)
[2018-12-21] MEDS ORDERED: METF1000 PO (19:34)
[2018-12-21] MEDS ORDERED: INSU100S10 SC (19:34)
[2018-12-21] MEDS ORDERED: METO25TA PO (19:34)
--- NOTE | 2018-12-21 19:50 | NUR ---
Patient will be admitted to care of DR. PARKER. Admited to [facility] FLOOR. Will go to [facility] 111B. Belongings list completed. Report to JOHN MONZON.
--- NOTE | 2018-12-21 19:50 | NUR ---
Henry rousseau in EDM - 12/21/18 at 2001 by [facility] GAVE REPORT TO JOHN MONZON AT THE BEDSIDE. PT STABLE AT THE TIME OF TRANSFER.
--- NOTE | 2018-12-21 19:50 | NUR ---
GAVE REPORT TO JOHN MONZON AT THE BEDSIDE. PT STABLE AT THE TIME OF TRANSFER. INFORMED PT THAT WAS UNABLE TO COLLECET THE URINE IN ER PT WAS UNABLE TO URINATE. JOHN MONZON TO COLLECET THE URINE SAMPLE.
[2018-12-21 20:00] VITALS: BP 101/75
--- NOTE | 2018-12-21 20:00 | NUR ---
RECEIVED PT FROM ER NURSE VIA ROSMERY REPORT GIVEN AT BED SIDE PT IS AAOX4 AMBULATORY HL ONLEFT AC GAUGE # 20 ON TELEMETRYSR SKIN INTACT [place] ON CHEST AND BACK , MRSA NARES PROTOCOL TAKEN AND SENT TO LAB PT IS ORIENTED TOTHE FLOOR CALL LIGHT WITHIN REACH
[2018-12-21] MEDS: NACL 0.9% 1,000 ML IV SCH (20:20)
[2018-12-21] MEDS ORDERED: INSULIN LISPRO SLIDING SCALE 100 UNITS/ML VIAL SUBQ PRN (20:35)
[2018-12-21] MEDS ORDERED: DEXTROSE 50% 50 ML SYR IVP PRN (20:35)
[2018-12-21] MEDS: INSULIN NPH HUMAN ISOPHANE 100 UNIT/ML VIAL SUBQ SCH (20:35)
[2018-12-21] MEDS: BLOOD GLUCOSE MONITORING 1 DEV DEV FS SCH (21:00)
[2018-12-21] MEDS: METOPROLOL 25 MG TAB PO SCH (21:00)
[2018-12-21] MEDS ORDERED: BENZONATATE 100 MG CAPLF PO PRN (21:00)
[2018-12-21] MEDS ORDERED: ALBUTEROL SULFATE/IPRATROPIU 3 ML SOL IH PRN (21:00)
--- NOTE | 2018-12-21 21:30 | NUR ---
BLOOD SUGAR TEST 221 COVERAGE WITH 4 UNITS SUBQ HUMALOG FOLLOW PROTOCOL
[2018-12-21 21:46] LABS: APPEARANCE,URINE CLEAR (CLEAR); BILIRUBIN,URINE NEGATIVE (NEGATIVE); BLOOD, URINE NEGATIVE (NEGATIVE); COLOR,URINE YELLOW (YELLOW); LEUKOCYTE ESTERASE ,URINE NEGATIVE (NEGATIVE); NITRITE, URINE NEGATIVE (NEGATIVE); UGLUCOSE 3+ (NEGATIVE)
[2018-12-21 21:52] LABS: RBC,URINE NONE SEEN /HPF (0-5); WBC,URINE 0-5 /HPF (0-5)
[2018-12-21 21:57] LABS: BARBITURATE, URINE NEG. ng/ml (NEG <=200); BENZODIAZEPINE, URINE NEG. ng/mL (NEG <=200); CANNABINOID, URINE NEG. ng/mL (NEG <=50); COCAINE, URINE NEG. ng/mL (NEG <=300); OPIATE, URINE NEG. ng/mL (NEG <=2000); PHENCYCLIDINE SCREEN,URINE NEG. ng/mL (NEG <=25)
[2018-12-21] MEDS: ATORVASTATIN 20 MG TAB PO SCH (22:09)
[2018-12-21] MEDS: metFORMIN 500 MG TAB PO SCH (22:09)
[2018-12-21] MEDS: CLOPIDOGREL 75 MG TAB PO SCH (22:10)
--- NOTE | 2018-12-21 23:41 | NUR ---
PT RESTING ON BED AND VOIDING WELL ON TELEMETRY SR NOT DISTRESS NOTED
[2018-12-22] VITALS: BP 100/63
[2018-12-22 04:00] VITALS: BP 105/71
[2018-12-22] MEDS: BLOOD GLUCOSE MONITORING 1 DEV DEV FS SCH ×4 (06:16→20:08)
[2018-12-22] MEDS: INSULIN NPH HUMAN ISOPHANE 100 UNIT/ML VIAL SUBQ SCH (06:59)
[2018-12-22] MEDS: PANTOPRAZOLE 40 MG TABEC PO SCH (07:10)
--- NOTE | 2018-12-22 07:25 | NUR ---
RECEIVED REPORT FROM TANK BUILDER HELPER NURSE. PT AAOX4 IN BED. RESPIRATIONS EVEN AND UNLABORED ON RA. NO C/O PAIN AT THIS TIME. ABD SOFT, BS ACTIVE. SKIN IS INTACT, WARM TO TOUCH. IV ON LT FA 20 GA RUNNING IVF PER ORDER. REVIEWED POC WITH PT, PT VERBALIZED UNDERSTANDING. WILL CONTINUE TO MONITOR.
[2018-12-22 07:35] LABS: ANION GAP 11.1 (8-16); CARBON DIOXIDE 28.8 mmol/L (21-32); MAGNESIUM 1.9 mg/dL (1.8-2.4); PHOSPHORUS 3.3 mg/dL (2.5-4.9); POTASSIUM 3.9 mmol/L (3.5-5.1)
[2018-12-22 07:50] LABS: BASOPHILS # (AUTO) 0.1 K/uL (0.00-0.22); BASOPHILS % (AUTO) 0.9 % (0.0-2.0); EOSINOPHILS # (AUTO) 0.3 K/uL (0-0.4); EOSINOPHILS % (AUTO) 3.2 % (0.0-4.0); HEMATOCRIT 44.2 % (36-52); HEMOGLOBIN 15.1 g/dL (12.0-18.0); LYMPHOCYTES # (AUTO) 3.3 K/uL (2.0-11.5); MEAN CORPUSCULAR HEMOGLOBIN 30 pg (27-31); MEAN CORPUSCULAR HGB CONC 34 g/dL (33-37); MEAN CORPUSCULAR VOLUME 87.3 fL (80-94); MONOCYTES # (AUTO) 0.8 K/uL (0.8-1.0); MONOCYTES % (AUTO) 8.9 % (1.7-9.3); NEUTROPHILS # (AUTO) 4.5 K/uL (1.8-7.7); PLATELET COUNT (AUTO) 189 K/uL (140-450); RED BLOOD CELL COUNT(AUTO) 5.07 MIL/uL (4.20-6.10); RED CELL DISTRIBUTION WIDTH 13.2 % (11.6-13.7)
[2018-12-22 08:00] VITALS: BP 93/67
[2018-12-22] MEDS: HYDROcodone/APAP 5/325 MG 1 TAB TAB PO PRN ×2 (08:07→13:58)
[2018-12-22] MEDS: METOPROLOL 25 MG TAB PO SCH ×3 (08:07→20:34)
[2018-12-22] MEDS: metFORMIN 500 MG TAB PO SCH ×2 (08:07→20:33)
[2018-12-22] MEDS: CLOPIDOGREL 75 MG TAB PO SCH (08:07)
[2018-12-22] MEDS: ATORVASTATIN 20 MG TAB PO SCH (08:08)
[2018-12-22] MEDS: ASPIRIN 81 MG TAB.CHEW PO SCH (08:08)
[2018-12-22] MEDS: LISINOPRIL 10 MG TAB PO SCH (08:43)
[2018-12-22] MEDS ORDERED: KETOROLAC 15 MG/ML VIAL IVP PRN (09:05)
[2018-12-22] MEDS: NICOTINE TRANSD SYS 7 MG/24 HR PATCH TD SCH (09:17)
--- NOTE | 2018-12-22 09:35 | NUR ---
RECEIVED ORDER FROM DR. WAY TO MONITOR PT'S BLOOD SUGAR LEVEL Q1H UNTIL LUNCH. WILL CONTINUE TO MONITOR.
--- NOTE | 2018-12-22 09:42 | NUR ---
PT AWARE OF THAT BLOOD SUGAR NEEDS TO BE CHECKED Q1H UNTIL LUNCH TIME, VERBALIZED UNDERSTANDING. BS CHECKED AT 282, NO S/S OF HYPOGLYCEMIA OR HYPERGLYCEMIA. NOTIFIED DR. WAY. PER PHYSICIAN CONTINUE BS CHECK Q1H UNTIL LUNCH TIME. NO NEW ORDERS RECEIVED.
[2018-12-22] MEDS ORDERED: BLOOD GLUCOSE MONITORING 1 DEV DEV FS SCH (10:30)
--- NOTE | 2018-12-22 10:35 | NUR ---
BS CHECKED AT 249. NO S/S OF HYPOGLYCEMIA/HYPERGLYCEMIA. RESPIRATIONS EVEN AND UNLABORED ON RA. WILL CONTINUE TO MONITOR.
[2018-12-22] MEDS ORDERED: INSULIN LISPRO SLIDING SCALE 100 UNITS/ML VIAL SUBQ PRN (11:05)
--- NOTE | 2018-12-22 11:30 | NUR ---
PT BLOOD SUGAR CHECKED AT 157. DR. WAY NOTIFIED, PER PHYSICIAN NO COVERAGE TO BE GIVEN AT THIS TIME, NO NEW ORDERS RECEIVED. NOTIFIED PT TO REPORT S/S OF HYPOGLYCEMIA SUCH DIZZINESS, CONFUSION AND EXCESSIVE SWEATING, OR HYPERGLYCEMIA SUCH EXTREME THIRST, EXTREME HUNGER, OR EXCESSIVE URINATION. PT AGREES AND VERBALIZES UNDERSTANDING. WILL CONTINUE TO MONITOR.
[2018-12-22] MEDS: NACL 0.9% 1,000 ML IV SCH ×2 (11:36→15:03)
[2018-12-22 12:00] VITALS: BP 94/58
[2018-12-22 13:05] LABS: CHOL/HDL RATIO 3.5 (1-4.5)
--- NOTE | 2018-12-22 13:50 | NUR ---
PT GIVEN ICE CREAM PER REQUEST. NO SIGNS OF HYPO/HYPERGLYCEMIA. RESPIRATIONS EVEN AND UNLABORED.
--- NOTE | 2018-12-22 14:58 | NUR ---
PT IS LYING COMFORTABLY IN BED. RESPIRATIONS EVEN AND UNLABORED ON RA. NO C/O OF PAIN AT THIS TIME.
[2018-12-22 16:00] VITALS: BP 99/66
[2018-12-22] MEDS ORDERED: INSULIN NPH HUMAN ISOPHANE 100 UNIT/ML VIAL SUBQ SCH ×2 (16:30)
--- NOTE | 2018-12-22 17:10 | NUR ---
REPORT BLOOD SUGAR LEVEL TO DR. WAY, PER PHYSICIAN HOLD NPH AT THIS TIME D/T LOW LEVEL.
--- NOTE | 2018-12-22 19:35 | NUR ---
ENDORSED PT TO VASCULAR RADIOLOGIST NURSE FOR CONTINUITY OF CARE. PT HAS NO SIGNS OF DISTRESS AT THIS TIME.
--- NOTE | 2018-12-22 19:36 | NUR ---
RECEIVED REPORT FROM DAY RN. PT AAOX4 IN BED. RESPIRATIONS EVEN AND UNLABORED ON RA. NO C/O PAIN AT THIS TIME. ABD SOFT, BS ACTIVE. SKIN IS INTACT, WARM TO TOUCH. IV ON LT FA 20 GA C/D/I INFUSING IVF PER ORDER. REVIEWED POC WITH PT, PT VERBALIZED UNDERSTANDING. CALL LIGHT IS WITHIN REACH. WILL ROUND FREQUENTLY
[2018-12-22 20:00] VITALS: BP 101/77
--- NOTE | 2018-12-22 20:33 | NUR ---
VITAL SIGNS ARE WITHIN NORMAL LIMITS. VS: 101/77 HR 79, 99% RA, RR 17, TEMP 97.3 BLOOD SUGAR 109 NO COVERAGE NEEDED. HELD LOPRESSOR D/T LOW B/P AND ADMINISTERED METFORMIN. PT COMPLAINS OF FEELING DIZZY OFFERED PATIENT VANILLA PUDDING AND APPLE JUICE. WILL LET DOCTOR KNOW.
[2018-12-22] MEDS ORDERED: MECLIZINE 25 MG TAB PO PRN (20:50)
--- NOTE | 2018-12-22 20:55 | NUR ---
ADMINISTERED MECLIZINE FOR C/C DIZZINESS. SAFETY MEASURES ARE IN PLACE. CALL LIGHT IS WITHIN REACH. WILL ROUND FREQUENTLY.
--- NOTE | 2018-12-22 22:15 | NUR ---
PATIENT IS SLEEPING COMFORTABLY IN BED. SAFETY MEASURES ARE IN PLACE. CALL LIGHT IS WITHIN REACH. WILL CONTINUE TO MONITOR.
[2018-12-23] VITALS: BP 120/81
--- NOTE | 2018-12-23 00:08 | NUR ---
VITAL SIGNS ARE WITHIN NORMAL LIMITS B/P 120/81 HR 80. DENIES ANY PAIN. ALL NEEDS MET AT THIS TIME. CALL LIGHT IS WITHIN REACH. WILL CONTINUE TO MONITOR.
--- NOTE | 2018-12-23 01:55 | NUR ---
PATIENT IS SLEEPING COMFORTABLY IN BED. RESPIRATIONS ARE EQUAL AND UNLABORED. CALL LIGHT IS WITHIN REACH.
[2018-12-23 04:00] VITALS: BP 128/83
--- NOTE | 2018-12-23 04:00 | NUR ---
VITAL SIGNS ARE WITHIN NORMAL LIMITS. DENIES ANY PAIN. ALL NEEDS MET AT THIS TIME. CALL LIGHT IS WITHIN REACH.
--- NOTE | 2018-12-23 05:58 | NUR ---
BLOOD SUGAR IS 69 GAVE PATIENT ORANGE JUICE. WILL RECHECK BLOOD SUGAR AND HOLD SCHEDULED HUMULIN N. SAFETY MEASURES ARE IN PLACE.
[2018-12-23] MEDS: BLOOD GLUCOSE MONITORING 1 DEV DEV FS SCH ×2 (06:06→11:30)
--- NOTE | 2018-12-23 06:26 | NUR ---
RECHECKED BG 63 ADMINISTERED DEXTROSE PER PROTOCOL AND GAVE ORANGE JUICE WITH SUGAR, PT AAOX4 DOCTOR IN TO SEE PATIENT AND DR STATES WILL BE HOLDING HUMULIN N AND ONLY GIVE INSULIN PER SLIDING SCALE. SAFETY MEASURES ARE IN PLACE.
[2018-12-23] MEDS: PANTOPRAZOLE 40 MG TABEC PO SCH (06:28)
--- NOTE | 2018-12-23 07:00 | NUR ---
RECHECKED BLOOD SUGAR 194 ALL SAFETY MEASURES ARE IN PLACE. CALL LIGHT IS WITHIN REACH.
--- NOTE | 2018-12-23 07:13 | NUR ---
GAVE BEDSIDE REPORT TO DAY SHIFT RN. PT IN STABLE CONDITION.
--- NOTE | 2018-12-23 07:14 | NUR ---
RECEIVED REPORT FROM SENIOR SAS DEVELOPER NURSE SERGIO FOR CONTINUITY OF CARE. PT IN STABLE CONDITION. RESPIRATIONS EVEN AND UNLABORED. IV INTACT AND PATENT. SAFETY MEASURES IN PLACE. BED IN LOW POSITION. CALL LIGHT AT BEDSIDE. WILL CONTINUE TO MONITOR.
[2018-12-23] MEDS ORDERED: INSULIN NPH HUMAN ISOPHANE 100 UNIT/ML VIAL SUBQ SCH (07:30)
[2018-12-23 07:38] LABS: ANION GAP 10.2 (8-16); BASOPHILS # (AUTO) 0.1 K/uL (0.00-0.22); BASOPHILS % (AUTO) 0.5 % (0.0-2.0); CARBON DIOXIDE 29.4 mmol/L (21-32); EOSINOPHILS # (AUTO) 0.2 K/uL (0-0.4); HEMATOCRIT 44.5 % (36-52); HEMOGLOBIN 15.3 g/dL (12.0-18.0); LYMPHOCYTES # (AUTO) 2.5 K/uL (2.0-11.5); MEAN CORPUSCULAR HEMOGLOBIN 30 pg (27-31); MEAN CORPUSCULAR HGB CONC 35 g/dL (33-37); MEAN CORPUSCULAR VOLUME 86.5 fL (80-94); MONOCYTES # (AUTO) 0.8 K/uL (0.8-1.0); NEUTROPHILS # (AUTO) 6.5 K/uL (1.8-7.7); NEUTROPHILS % (AUTO) 64.5 % (42.2-75.2); PLATELET COUNT (AUTO) 183 K/uL (140-450); POTASSIUM 3.6 mmol/L (3.5-5.1); RED BLOOD CELL COUNT(AUTO) 5.14 MIL/uL (4.20-6.10); RED CELL DISTRIBUTION WIDTH 13.1 % (11.6-13.7); WHITE BLOOD COUNT (AUTO) 10.2 K/uL (4.8-10.8)
[2018-12-23 08:00] VITALS: BP 111/77
[2018-12-23] MEDS ORDERED: metFORMIN 500 MG TAB PO SCH (08:00)
--- NOTE | 2018-12-23 08:36 | NUR ---
PATIENT HAS BEEN SCREENED AND CATEGORIZED MODERATE NUTRITION RISK. PATIENT WILL BE SEEN WITHIN 3-5 DAYS OF ADMISSION. 12/24/18 12/26/[address]
[2018-12-23] MEDS: NICOTINE TRANSD SYS 7 MG/24 HR PATCH TD SCH (09:00)
--- NOTE | 2018-12-23 09:10 | NUR ---
PT LYING IN BED SLEEPING AT THIS TIME. RESPIRATIONS EVEN AND UNLABORED. BED IN LOW POSITION. CALL LIGHT AT BEDSIDE. WILL CONTINUE TO MONITOR.
[2018-12-23] MEDS: ATORVASTATIN 20 MG TAB PO SCH (10:28)
[2018-12-23] MEDS: ASPIRIN 81 MG TAB.CHEW PO SCH (10:28)
[2018-12-23] MEDS: METOPROLOL 25 MG TAB PO SCH (10:29)
[2018-12-23] MEDS: LISINOPRIL 10 MG TAB PO SCH (10:29)
[2018-12-23] MEDS: CLOPIDOGREL 75 MG TAB PO SCH (10:30)
--- NOTE | 2018-12-23 11:33 | NUR ---
PT LYING IN BED QUIETLY IN STABLE CONDITION. RESPIRATIONS EVEN AND UNLABORED. BED IN LOW POSITION. CALL LIGHT AT BEDSIDE. WILL CONTINUE TO MONITOR.
[2018-12-23 12:00] VITALS: BP 109/69
--- NOTE | 2018-12-23 13:59 | NUR ---
PT LYING IN BED AT THIS TIME SLEEPING. RESPIRATIONS EVEN AND UNLABORED. BED IN LOW POSITION. CALL LIGHT AT BEDSIDE. WILL CONTINUE TO MONITOR.
[2018-12-23] MEDS ORDERED: LISI10TA11 PO (15:04)
--- NOTE | 2018-12-23 15:15 | NUR ---
PT REQUEST TO DISCONNECT FROM IV TO GET DRESS PENDING DISCHARGE. PT IN STABLE CONDITION. RESPIRATIONS EVEN AND UNLABORED. BED IN LOW POSITION. CALL LIGHT AT BEDSIDE. WILL CONTINUE TO MONITOR.
[2018-12-23] MEDS ORDERED: NITR0.4T2 SL (15:36)
--- NOTE | 2018-12-23 16:10 | NUR ---
GAVE DISCHARGE INSTRUCTIONS AND WHERE TO FOOD AND DRUG INSPECTOR PRESCRIPTION MEDICATION AT HOME PHARMACY, PT VERBALIZED UNDERSTANDING OF INSTRUCTIONS. REMOVED IV, LUMEN INTACT, REMOVED ID BAND. PT REFUSED WHEELCHAIR. ESCORTED PT TO LOBBY WHERE HE WA WALKING TO HIS CAR IN THE EMERGENCY ROOM PARKING LOT. PT IN STABLE CONDITION. STEADY GAIT. RESPIRATIONS EVEN AND UNLABORED.
== END 2018-12-23 16:10 | disposition home or self-care (01) | DRG 313 ==
LOC: MED 16:57 → MTU 19:01
PROVIDERS: ADMIT General Practice; ATTEND General Practice
DX: R07.89 Other chest pain (principal); E87.1 Hypo-osmolality and hyponatremia; J98.11 Atelectasis; E11.65 Type 2 diabetes mellitus with hyperglycemia; J44.9 Chronic obstructive pulmonary disease, unspecified; I25.10 Atherosclerotic heart disease of native coronary artery without angina pectoris; J45.909 Unspecified asthma, uncomplicated; E78.5 Hyperlipidemia, unspecified; F19.10 Other psychoactive substance abuse, uncomplicated; F15.10 Other stimulant abuse, uncomplicated; I10 Essential (primary) hypertension; F14.90 Cocaine use, unspecified, uncomplicated; K21.9 Gastro-esophageal reflux disease without esophagitis; Z90.49 Acquired absence of other specified parts of digestive tract; Z98.61 Coronary angioplasty status; Z88.1 Allergy status to other antibiotic agents; Z72.89 Other problems related to lifestyle; Z83.3 Family history of diabetes mellitus; Z82.49 Family history of ischemic heart disease and other diseases of the circulatory system; Z91.19 Patient's noncompliance with other medical treatment and regimen
CPT/HCPCS: 36415; 71045; 80048; 80053; 80305; 81001; 82948; 83036; 83690; 83735; 83880; 84100; 84443; 84484; 85025; 85379; 87081; 93005; 93925; 93970; 96361; 96374; 96375; 99291; J1815; J1885; J7030; J8597; Q0092

== ENCOUNTER 2023-07-02 19:22 | Emergency (ER) | payer OTHER ==
[~2023-07-02] VITALS: Ht 170.2 cm; Wt 59.0 kg
[2023-07-02 19:22] VITALS: BP 109/69; PULSE 98; RESP 18; TEMP 98.4; O2SAT 98
[~2023-07-02 19:22] MED LIST changes: -ASPI-1173 PO; +ASPI-1856 PO; +ATOR10TA PO; +CLOP-68 PO; -CLOP75TA26 PO; +INSU100S10 SC; -LEVEMIR SUBQ; -LISI10TA11 PO; +LISI10TA30 PO; -MECL-272 PO; +NITR0.4T2 SL; -PANT40EC28 PO
[2023-07-02] MEDS ORDERED: NACL 0.9% 1,000 ML IV ONE (21:15)
[2023-07-02 22:24] LABS: BASOPHILS # (AUTO) 0.1 K/uL (0.00-0.22); BASOPHILS % (AUTO) 1.4 % (0.0-2.0); EOSINOPHILS # (AUTO) 0.2 K/uL (0-0.4); EOSINOPHILS % (AUTO) 2.3 % (0.0-4.0); HEMATOCRIT 33.1 % (36-52); HEMOGLOBIN 11.2 g/dL (12.0-18.0); MEAN CORPUSCULAR HEMOGLOBIN 26 pg (27-31); MEAN CORPUSCULAR HGB CONC 34 g/dL (33-37); MEAN CORPUSCULAR VOLUME 76.9 fL (80-94); MONOCYTES % (AUTO) 10.2 % (1.7-9.3); NEUTROPHILS # (AUTO) 5.1 K/uL (1.8-7.7); NEUTROPHILS % (AUTO) 54.1 % (42.2-75.2); PLATELET COUNT (AUTO) 237 K/uL (140-450); RED BLOOD CELL COUNT(AUTO) 4.31 MIL/uL (4.20-6.10); RED CELL DISTRIBUTION WIDTH 15.1 % (11.6-13.7); WHITE BLOOD COUNT (AUTO) 9.4 K/uL (4.8-10.8)
[2023-07-02 22:40] LABS: INR 0.95 (0.8-1.2)
[2023-07-02 22:50] VITALS: O2SAT 95
[2023-07-02 22:51] LABS: CALCIUM 9.2 mg/dL (8.5-10.1); CARBON DIOXIDE 30.9 mmol/L (21-32); CREATININE 1.8 mg/dL (0.6-1.3)
[2023-07-02 22:53] LABS: D-DIMER < 100 ng/ml (0-400)
[2023-07-02 22:56] LABS: LACTIC ACID 1.1 mmol/L (0.4-2.0)
[2023-07-02 23:00] LABS: ANION GAP 8.4 (8-16); POTASSIUM 4.3 mmol/L (3.5-5.1)
[2023-07-02 23:23] LABS: ALANINE AMINOTRANSFERASE 47 U/L (12-78); ALBUMIN 3.5 g/dL (3.4-5.0); ALKALINE PHOSPHATASE 69 U/L (50-136); ASPARTATE AMINOTRANSFERASE 35 U/L (15-37); BILIRUBIN,DIRECT 0.1 mg/dL (0.0-0.3); CREATINE KINASE, TOTAL 365 U/L (39-308); TOTAL BILIRUBIN 0.4 mg/dL (0.0-1.0); TOTAL PROTEIN, SERUM 8.6 g/dL (6.4-8.2)
[2023-07-03 00:38] LABS: CKMB RELATIVE INDEX 2.2 (0.0-2.5); CREATINE KINASE MB 8.1 ng/mL (0-3.6)
[2023-07-03 01:20] VITALS: O2SAT 95
[2023-07-03] MEDS ORDERED: KETOROLAC 30 MG/ML VIAL IVP ONE (01:25)
[2023-07-03] MEDS ORDERED: IBUP-2213 PO (01:42)
[2023-07-03 02:37] VITALS: BP 108/76; PULSE 95; RESP 16; O2SAT 98
== END 2023-07-03 02:37 | disposition home or self-care (01) ==
LOC: MED 19:22
DX: R60.9 Edema, unspecified (principal); K21.9 Gastro-esophageal reflux disease without esophagitis; I25.10 Atherosclerotic heart disease of native coronary artery without angina pectoris; E11.9 Type 2 diabetes mellitus without complications; Z79.4 Long term (current) use of insulin; Z79.899 Other long term (current) drug therapy
CPT/HCPCS: 36415; 71045; 80048; 80076; 82009; 82550; 82553; 82803; 83605; 83880; 84484; 85025; 85379; 85610; 85730; 87040; 93005; 93970; 93971; 96361; 96374; 99285; J1885; J7030; Q0092